=== PATIENT | female | born 1995 | race Caucasian/White ===

== ENCOUNTER 2020-10-30 06:20 | Emergency (ER) | payer BC, SELFPAY ==
--- NOTE | ~2020-10-30 | CT_ITS ---
EXAMINATION: CT abdomen pelvis wo con DATE: 10/30/2020 08:52 INDICATION: Right flank pain. TECHNIQUE: Computed tomography (CT) of the abdomen and pelvis was performed without intravenous contr ast. Automated exposure control and iterative reconstruction technique were employed. The dose-length product was 385.98 mGy-cm. COMPARISON: None. FINDINGS: The visualized portions of the lung bases demonstrate a calcified left lung nodule, consist ent with old granulomatous disease. No pleural effusion. The heart size is normal. No pericardial eff usion. The liver, gallbladder, spleen, pancreas, adrenal glands, and left kidney are normal. There is mild right hydronephrosis. There is a 3 mm stone in proximal right ureter. There are no dilated loop s of bowel. The appendix is normal. There are no pathologically enlarged lymph nodes. There is no pia e intraperitoneal fluid. There is a benign bone island in left pelvis. IMPRESSION: 1. 3 mm stone in proximal right ureter with mild right hydronephrosis. Reviewed, dictated and finalized at location B.
--- NOTE | ~2020-10-30 | XR_ITS ---
EXAMINATION: XR abdomen/kub 1V DATE: 10/30/2020 09:23 INDICATION: Kidney stone. TECHNIQUE: A supine view of the abdomen on 2 radiographs was obtained. COMPARISON: CT abdomen and pelvis 10/30/2020 FINDINGS: There are no dilated loops of bowel. There is a phlebolith in right pelvis. There is a 3 mm stone in proximal right ureter at L2-L3. IMPRESSION: 1. 3 mm stone in proximal right ureter. Reviewed, dictated and finalized at location B.
[2020-10-30 06:32] VITALS: BP 138/88; PULSE 74; RESP 20; TEMP 36.4; O2SAT 100
[2020-10-30 06:59] LABS: Basophils Absolute Auto 0.1 K/mm3 (0.0-0.1); Basophils Percent Auto 0.5 % (0.2-1.2); Eosinophils Absolute Auto 0.3 K/mm3 (0-0.3); Eosinophils Percent Auto 2.2 % (0-4.4); Hematocrit 38.7 % (37.0-47.0); Hemoglobin 12.9 g/dL (12.0-15.0); Immature Granulocyte Absolute 0.07 K/mm3 (0.00-0.031); Immature Granulocyte Percent A 0.5 % (0-0.5); Lymphocytes Absolute Auto 2.29 K/mm3 (0.9-3.2); Lymphocytes Percent Auto 16.9 % (18.3-44.2); Mean Corpuscular HGB Conc 33.3 g/dl (32-36); Mean Corpuscular Hemoglobin 27.9 pg (26-34); Mean Corpuscular Volume 83.8 fl (80-100); Mean Platelet Volume 8.8 fl (7.4-10.4); Monocytes Absolute Auto 0.9 K/mm3 (0.1-0.6); Monocytes Percent Auto 6.6 % (2.6-8.5); Neutrophils Absolute Auto 9.9 K/mm3 (1.3-6.7); Neutrophils Percent Auto 73.3 % (45.5-73.1); Platelet Count Result 347 k/mm3 (150-375); Red Blood Count 4.62 M/mm3 (4.2-5.4); Red Cell Distribution Width 12.3 % (11.5-14.5); White Blood Count 13.6 K/mm3 (4.5-10.0)
--- NOTE | 2020-10-30 07:01 | ED.BACK ---
HPI - Back Pain/Injury General Chief Complaint: Back Pain/Injury Stated Complaint: Lower back pain, N/V-family hx kidney stone Time Seen by Provider: 10/30/20 07:01 History of Present Illness HPI Narrative: 25 yo female w/ h/o PUD presents to the ED with right flank pain. Right flank pain since yesterday. More severe today, awoke her from sleep. Feels like pinching. Occasionally radiates to the lower abdomen. Associated with nausea and vomiting. She has never had this pain before. No hematemesis, fever, diarrhea, dysuria, hematuria, vaginal bleeding/discharge. Related Data Allergies Allergy/AdvReac Type Severity Reaction Status Date / Time Sulfa (Sulfonamide Allergy Rash Verified 10/30/20 06:23 Antibiotics) Review of Systems Review of Systems: All systems reviewed & are unremarkable except as noted in HPI and below Constitutional: Constitutional: Denies chills, Denies fever(s) and Denies weakness Eyes: Eyes: Reports no additional eye complaints ENT: Reports system reviewed and no additional complaints, except as documented Cardiovascular: Cardiovascular: Denies chest pain Respiratory: Respiratory: Denies dyspnea Gastrointestinal: Gastrointestinal: Reports abdominal pain, Denies diarrhea, Reports nausea and Reports vomiting Genitourinary: Genitourinary: Denies abnormal vaginal bleeding, Denies hematuria, Denies nocturia, Denies dysuria, Reports flank pain and Denies vaginal discharge Musculoskeletal: Musculoskeletal: Reports no additional musculoskeletal complaints Neurologic: Reports system reviewed and no additional complaints, except as documented Psychiatric: Psychiatric: Reports no additional psychiatric complaints [facility] Past Medical History Medical History (Updated 10/30/20 @ 09:34 by Juanito Mcdowell MD) PUD (peptic ulcer disease) Family History Family History (Updated 10/30/20 @ 07:55 by Juanito Mcdowell MD) Other Kidney stone Social History Social History (Updated 10/30/20 @ 07:55 by Juanito Mcdowell MD) Smoking status: Never smoker Substance use: never Exam Const: General: healthy appearing and alert Orientation/consciousness: patient oriented x3 Other: Uncomfortable, restless HENMT: Head: normal to inspection Neck: Neck: normal visual inspection Resp: Effort & Inspection: normal respiratory effort Auscultation: clear to auscultation bilaterally Cardio: Rate: regular rate Rhythm: regular rhythm GI: Inspection: non-distended GI Palp: Yes Soft to palpation, Yes Tenderness to palpation present (GI) (mild, periumbilical), No Guarding due to palpation present (GI) and No Rebound tenderness present Skin: General skin exam: normal color Neuro: General: patient oriented x3, moves all extremities and no focal motor deficits Speech: normal speech Extrem: General: normal to inspection Course Vital Signs Vital signs: Vital Signs Temperature 36.4 C 10/30/20 06:32 Pulse Rate 74 10/30/20 06:32 Respiratory Rate 20 10/30/20 06:32 Blood Pressure 138/88 10/30/20 06:32 Pulse Oximetry 100 10/30/20 06:32 Temperature 36.4 C 10/30/20 06:32 Pulse Rate 70 10/30/20 10:45 Respiratory Rate 16 10/30/20 10:45 Blood Pressure 126/78 10/30/20 10:45 Pulse Oximetry 98 10/30/20 10:45 MDM - Back Pain/Injury MDM Narrative Medical decision making narrative: Proximal 3 mm stone on the right. UA appears contaminated, not convincing for infection. Will discharge with meds for pain and nausea as well as flomax. Will give information for urology followup Differential Diagnosis Differential diagnosis: Likely pyelonephritis, thoracic back pain and other (kidney stone) Medical Records Attestation: I reviewed the patient's medical records. Lab Data Attestation: I reviewed the patient's lab results. Result diagrams: 10/30/20 06:50 10/30/20 06:50 Labs: Lab Results 10/30/20 10/30/20 10/30/20 Range/Units 06:49 06:50
[2020-10-30 07:09] LABS: Anion Gap 8 mmol/L (8-16); Blood Urea Nitrogen 18 mg/dL (7-17); Calcium 9.4 mg/dL (8.4-10.2); Carbon Dioxide 24 mmol/L (22-30); Chloride 104 mmol/L (98-107); Estimated CRCL calculation 67 ml/min; Estimated Glomerular Filt Rate 60; Glucose 119 mg/dL (65-105); Potassium 3.7 mmol/L (3.4-5.0); Sodium 136 mmol/L (137-145)
[2020-10-30] MEDS: ONDANSETRON INJ 4 MG/2 ML VIAL IV PUSH (07:21)
[2020-10-30] MEDS: SODIUM CHLORIDE 0.9% IV 1,000 ML 999 ML IV CONT ×2 (07:21→09:32)
[2020-10-30] MEDS: fentaNYL CITRATE INJ (*CRX) 100 MCG/2 ML VIAL 50 MCG IV PUSH (07:22)
--- NOTE | 2020-10-30 07:25 | PC.NURSE ---
called lab @[id number] to add on the Hepatic Lip
[2020-10-30 07:43] LABS: Alanine Aminotransferase 20 U/L (4-35); Albumin Level 4.4 g/dL (3.5-5.1); Alkaline Phosphatase 44 U/L (38-126); Aspartate Amino Transferase 45 U/L (14-36); Bilirubin,Total 0.6 mg/dL (0.2-1.3); Lipase 92 U/L (23-300)
--- NOTE | 2020-10-30 07:56 | PC.NURSE ---
PT ATTEMPTED TO GIVE URINE SAMPLE WITH NO SUCCESS. DECLINES STRAIGHT CATH. AWARE WE ARE AWAITING PREG TEST PRIOR TO SCAN. CT MADE AWARE OF REASON FOR DELAY.
[2020-10-30 08:00] VITALS: BP 136/86; PULSE 66; RESP 16; O2SAT 100
--- NOTE | 2020-10-30 08:32 | PC.NURSE ---
PT DECLINES TO SIGN WAIVER INDICATING NEGATIVE CHANCE OF FOR CT SCAN
[2020-10-30 09:00] LABS: Add Urine Microscopic? YES; Appearance Urine Cloudy (Clear); Bacteria Urine Trace /hpf; Bilirubin Urine Negative (Negative); Blood Urine 1+ (Negative); Color Urine Yellow (Yellow); Glucose Urine UA Negative (Negative); Ketones Urine Trace mg/dL (Negative); Leukocyte Esterase Ur 1+ LEU/UL (Negative); Mucus Urine Moderate /lpf; Nitrate Urine Negative (Negative); Protein Urine 1+ mg/dL (Negative); Specific Grav Ur 1.021 (1.001-1.035); Squamous Epithelial Cell Urine Many /hpf (Few); Urobilinogen Urine Negative mg/dL (<2.0)
[2020-10-30] MEDS: KETOROLAC 30 MG/ML VIAL (*BKC) IV PUSH (09:32)
[2020-10-30] MEDS: METOCLOPRAMIDE HCL INJ 10 MG/2 ML VIAL IV PUSH (09:33)
[2020-10-30 09:35] VITALS: BP 137/81; PULSE 80; RESP 16; O2SAT 100
[2020-10-30] MEDS: MORPHINE SULFATE (*CRX) 4 MG/ML INJ IV PUSH (09:38)
[2020-10-30 10:45] VITALS: BP 126/78; PULSE 70; RESP 16; O2SAT 98
== END 2020-10-30 10:45 | disposition home or self-care (01) ==
PROVIDERS: Emergency Medicine; Emergency Provider Emergency Medicine; PCP Family Medicine
DX: N20.1 Calculus of ureter (principal)
CPT/HCPCS: 36415; 74018; 74176; 80048; 80076; 81001; 81025; 83690; 85025; 87086; 87088; 96361; 96374; 96375; 99284; J1885; J2270; J2405; J2765; J3010; J7030

== ENCOUNTER → 2021-01-16 10:38 | Outpatient (CLI) | payer BC, SELFPAY ==
--- NOTE | ~2021-01-16 | XR_ITS ---
EXAMINATION: XR abdomen/kub 1V INDICATION: Right ureteral stone TECHNIQUE: Supine views of the abdomen were obtained on 2 radiographs. COMPARISON: 10/30/2020 FINDINGS: There is a 3 mm stone at the right ureterovesicular junction. A phlebolith is noted in the right pelvis. The bowel gas pattern is normal. The visualized lung bases are clear. IMPRESSION: 1. 3 mm stone at the right ureterovesicular junction. Reviewed, dictated and finalized at location A.
--- NOTE | ~2021-01-16 | CT_ITS ---
EXAMINATION: CT abdomen pelvis wo con DATE: 01/16/2021 11:08 INDICATION: Right ureteral stone TECHNIQUE: Computed tomography (CT) of the abdomen and pelvis was performed without intravenous contr ast. The dose-length product (DLP) was 350.64 mGy-cm. Automated exposure control and iterative recons truction technique were employed. COMPARISON: 10/30/2020 FINDINGS: The lung bases are clear. The heart size is normal. The liver, spleen, pancreas, gallbladde r, and adrenal glands are normal. The left kidney is unremarkable. There is a 3 mm stone at the right ureterovesicular junction which causes mild right hydroureteronephrosis. No pathologically enlarged abdominal or pelvic lymph nodes are identified. There is no free intraperitoneal gas or evidence of b owel obstruction. The appendix is normal. A moderate volume of colonic stool is present. IMPRESSION: 1. 3 mm stone at the right ureterovesicular junction causing mild right hydroureteronephrosis. Reviewed, dictated and finalized at location A. IMPRESSION: 1. 3 mm stone at the right ureterovesicular junction causing mild right hydrour eteronephrosis.
== END ==
PROVIDERS: PCP Family Medicine; Visit Provider Nurse Practitioner Adult Health
DX: N20.1 Calculus of ureter (principal)
CPT/HCPCS: 74018; 74176

== ENCOUNTER 2021-01-26 19:29 | Emergency (ER) | payer BC, SELFPAY ==
[2021-01-26 19:43] VITALS: BP 130/62; PULSE 86; RESP 20; TEMP 36.4; O2SAT 100
[2021-01-26 20:07] LABS: Basophils Absolute Auto 0.1 K/mm3 (0.0-0.1); Basophils Percent Auto 0.3 % (0.2-1.2); Hematocrit 38.6 % (37.0-47.0); Hemoglobin 12.6 g/dL (12.0-15.0); Immature Granulocyte Absolute 0.08 K/mm3 (0.00-0.031); Immature Granulocyte Percent A 0.5 % (0-0.5); Lymphocytes Absolute Auto 0.53 K/mm3 (0.9-3.2); Lymphocytes Percent Auto 3.2 % (18.3-44.2); Mean Corpuscular HGB Conc 32.6 g/dl (32-36); Mean Corpuscular Hemoglobin 27.8 pg (26-34); Mean Corpuscular Volume 85.2 fl (80-100); Mean Platelet Volume 8.8 fl (7.4-10.4); Monocytes Absolute Auto 0.4 K/mm3 (0.1-0.6); Monocytes Percent Auto 2.1 % (2.6-8.5); Neutrophils Absolute Auto 15.4 K/mm3 (1.3-6.7); Neutrophils Percent Auto 93.9 % (45.5-73.1); Platelet Count Result 287 k/mm3 (150-375); Red Blood Count 4.53 M/mm3 (4.2-5.4); Red Cell Distribution Width 12.2 % (11.5-14.5); White Blood Count 16.4 K/mm3 (4.5-10.0)
[2021-01-26 20:24] LABS: Anion Gap 11 mmol/L (8-16); Blood Urea Nitrogen 17 mg/dL (7-17); Calcium 9.4 mg/dL (8.4-10.2); Carbon Dioxide 20 mmol/L (22-30); Chloride 104 mmol/L (98-107); Estimated CRCL calculation 57 ml/min; Estimated Glomerular Filt Rate 50; Glucose 129 mg/dL (65-110); Potassium 4.1 mmol/L (3.4-5.0); Sodium 135 mmol/L (137-145)
[2021-01-26 20:34] LABS: Add Urine Microscopic? YES; Appearance Urine Clear (Clear); Bacteria Urine Trace /hpf; Bilirubin Urine Negative (Negative); Blood Urine Negative (Negative); Color Urine Yellow (Yellow); Glucose Urine UA Negative (Negative); Ketones Urine 2+ mg/dL (Negative); Leukocyte Esterase Ur Negative LEU/UL (Negative); Mucus Urine Few /lpf; Nitrate Urine Negative (Negative); Protein Urine 2+ mg/dL (Negative); Specific Grav Ur 1.029 (1.001-1.035); Squamous Epithelial Cell Urine Many /hpf (Few); Urobilinogen Urine Negative mg/dL (<2.0); WBC Urine 0-3 /hpf
== END 2021-01-26 20:19 | disposition left against medical advice (07) ==
PROVIDERS: Emergency Medicine
DX: R10.31 Right lower quadrant pain (principal)
CPT/HCPCS: 36415; 80048; 81001; 81025; 85025; 99199

== ENCOUNTER 2021-01-28 01:44 | Day surgery (SDC) | payer BC, SELFPAY ==
[2021-01-27 11:03] VITALS: BMI 23.4
[2021-01-28] VITALS (7 sets, daily range): BP systolic 115–135; BP diastolic 75–87; PULSE 56–95; RESP 10–20; TEMP 36.1–37.4; O2SAT 99–100
--- NOTE | ~2021-01-28 | XR_ITS ---
EXAMINATION: XR retrograde pyelo w/stent RT DATE: 01/28/2021 09:14 INDICATION: Right ureteral stone. TECHNIQUE: 5 intraoperative fluoroscopic views of the abdomen and pelvis were obtained. I was not pre sent. Fluoroscopy exposure time was 16 seconds. COMPARISON: CT abdomen and pelvis 01/16/2021 FINDINGS: The right-sided retrograde is unremarkable. The final images demonstrate a right internal u reteral stent in expected position. IMPRESSION: 1. Right internal ureteral stent in expected position. Reviewed, dictated and finalized at location A.
[2021-01-28] MEDS: LACTATED RINGERS 1,000 ML 30 ML IV CONT ×2 (08:10→09:43)
--- NOTE | 2021-01-28 08:18 | WPDHPUPDATE1 ---
History and Physical Update Update Date/Time: 01/28/21 08:18 History and Physical has been reviewed, including an updated exam of the patient. There are NO changes in the patient's condition. Risks, benefits, and alternatives have been discussed and questions answered. Patient agrees to proceed with procedure. Proceed with cysto, right retrograde, right ureteroscopy with stone extraction , stent placement.
--- NOTE | 2021-01-28 08:33 | WPDANESEPPF ---
Anes - Initial Pre Proc Eval Procedure: Operation Date: 01/28/21 09:30 Proposed Procedures p Cystoscopy, Right Ureteroscopy, Right Stone Extraction, possible Right Stent Placement, possible Retrograde Pyelogram - Rafal Garcia MD s possible Holmium Laser Procedure - Rafal Garcia MD Date/Time: 01/28/21 08:33 Surgeon: Rafal Garcia MD Pre Op Diagnosis: right ureteral kidney stone Patient Data Age: 25 Gender: F Height: 1.7 m Weight: 67 kg Last Vital Signs Temp 37.4 C 01/28/21 07:45 Pulse 95 01/28/21 07:45 Resp 20 01/28/21 07:45 BP 130/84 01/28/21 07:45 Pulse Ox 100 01/28/21 07:45 Allergies Allergy/AdvReac Type Severity Reaction Status Date / Time Sulfa (Sulfonamide AdvReac Mild Rash Verified 01/28/21 08:01 Antibiotics) Home Medications Medication Instructions Recorded Confirmed Type hydrocodone-acetaminophen 1 tablet PO Q6H PRN #15 tablet 10/30/20 01/28/21 Rx ondansetron HCl [Zofran] 4 mg PO Q6H PRN #10 tablet 10/30/20 01/28/21 Rx tamsulosin [Flomax] 0.4 mg PO DAILY #10 cap 10/30/20 01/28/21 Rx drospirenone-ethinyl estradiol 1 tablet PO HS 01/27/21 01/28/21 History Patient hx anesthesia problems: none Family hx anesthesia problems: none PMFSH Past Medical History Medical History Hypertension PUD (peptic ulcer disease) Family History Family History Other Kidney stone Social History Social History Smoking status: Never smoker Alcohol intake: current Drinks per week: 1 Substance use: never Living arrangements: alone Spiritual care concerns: No Anes - Eval Final PreProcedure Day of Procedure 01/28/21 08:33 Patient weight: normal Heart: regular rate and rhythm Lungs: clear to auscultation Airway: Mallampati scale class II Neurological: alert and oriented Last oral intake: >/= 8 hours ASA classification: II Emergent: no Anesthetic plan: proceed Anesthesia type and monitoring: general LMA and standard monitoring Other findings: exam per [facility] Informed Consent: The patient's anesthetic plan and its attendant risks and benefits were discussed with the patient/family/POA. Questions were solicited and answers provided to the satisfaction of the patient/family/POA.
[2021-01-28] MEDS: SCOPOLAMINE 1.5 MG PATCH TRANSDERM (08:38)
[2021-01-28] MEDS: ceFAZolin 2 GM/D5W 50 ML 2 GM/50 ML BAG IVPB (08:41)
[2021-01-28] MEDS: LIDOCAINE HCL 2% GEL UROJET 10 ML PKG MUCOUS MEM (09:08)
--- NOTE | 2021-01-28 09:12 | W.PM.PROC2 ---
Procedure Note - Detailed Date of Procedure 01/28/21 Pre-op Diagnosis right ureteral kidney stone Post-op Diagnosis same Procedure Performed Cystoscopy, right retrograde pyelogram, right ureteroscopy with stone extraction, right stent placement 4.8 [place]ian contour Surgeon Rafal Garcia MD Anesthesia general Description of Procedure Patient is taken to the operative suite correctly identified. Once anesthesia was obtained she was placed in dorsal lithotomy position and prepped and draped usual sterile fashion. Twenty-two Algerian scope was inserted in the bladder. There are no tumors noted. Right ureteral orifice was cannulated with a guidewire dilated using an 8/10 dilator. Rigid ureteral scope was then inserted the stone was visualized. Escape basket was used stone was retrieved in its entirety. Pyelogram was then performed to confirm placement of the stent. 4.8 [place]ian contour stent was then placed with the proximal end coiled in the renal pelvis and the distal end in the bladder. Patient was taken recovery stable condition. She will follow up in a week's time for stent removal. Drains Yes Packing No Pathology yes Complications No immediate complications Condition stable Disposition PACU
== END 2021-01-28 11:18 | disposition home or self-care (01) ==
PROVIDERS: PCP Family Medicine; Visit Provider Urology
PROC: (CPT 52352; principal; 2021-01-28 09:30)
DX: N20.1 Calculus of ureter (principal); I10 Essential (primary) hypertension; K27.9 Peptic ulcer, site unspecified, unspecified as acute or chronic, without hemorrhage or perforation
CPT/HCPCS: 52332; 52352; 74420; 82365; 88300; A9270; C1769; C2617; J0690; J1100; J2250; J2405; J2704; J3010; J7120; Q9966